=== PATIENT | female | born 1965 ===

== ENCOUNTER 2023-06-22 06:02 | Day surgery (SDC) | payer OTHER ==
[2023-06-18 10:27] LABS: PH,URINE 7.5 (5.0-8.0); URINE APPEARANCE Clear; URINE BILIRRUBIN Negative (NEGATIVE); URINE BLOOD Negative; URINE COLOR Yellow; URINE GLUCOSE Negative (NEGATIVE); URINE LEUKOCYTE Trace; URINE NITRATE Negative; URINE PROTEIN Negative (NEGATIVE); URINE UROBILINOGEN 0.2 E.U./dl
[2023-06-18 10:31] LABS: HEMATOCRIT 46.4 % (36.0-45.00); HEMOGLOBIN 15.1 g/dL (12.0-15.00); MEAN CELL VOLUME 92.9 fL (80.00-100.00); MEAN CORPUSCULAR HEMOGLOBIN 30.2 pg (27.00-32.0); MEAN CORPUSCULAR HGB CONC 32.5 g/dl (32.0-36.0); PLATELET COUNT 264 K/uL (150-450); RED BLOOD COUNT 4.99 M/uL (4.00-6.00); RED CELL DISTRIBUTION WIDTH 13.9 % (11.5-14.5)
[2023-06-18 10:32] LABS: URINE BACTERIA 26.5 uL (0.0-1933); URINE EPITHELIAL CELLS 1.4 uL (0.0-38.8); URINE RBC 3.1 uL (0.0-20.8); URINE WBC 2.9 uL (0.0-23.2)
[2023-06-18 10:56] LABS: INR 1.01; PARTIAL THROMBOPLASTIN TIME 27.9 SECONDS (22.0-34.0); PROTHROMBIN TIME 10.6 SECONDS (9.0-11.5)
[2023-06-18 11:05] LABS: ALBUMIN 4.1 gm/dL (3.4-5.0); BILIRUBIN TOTAL 0.63 mg/dL (0.3-1.2); CALCIUM 9.4 mg/dL (8.5-10.1); CREATININE SERUM 0.71 mg/dL (0.55-1.02); GFR 84.26; GLOBULINA 2.9 G/DL (2.4-3.5); POTASSIUM 4.47 mEq/L (3.5-5.1)
[~2023-06-22] VITALS: Ht 165.1 cm; Wt 84.8 kg
[~2023-06-22 06:02] MED LIST: LIPITOR40 M1 PO
== END 2023-06-22 11:45 | disposition home or self-care (01) ==
LOC: CIR.AMB 06:02
PROVIDERS: ATTEND Otolaryngology
DX: C73 Malignant neoplasm of thyroid gland (principal); E04.2 Nontoxic multinodular goiter; Z88.6 Allergy status to analgesic agent; E78.5 Hyperlipidemia, unspecified

== ENCOUNTER 2023-08-31 07:38 | Day surgery (SDC) | payer OTHER ==
[2023-08-27 09:26] LABS: HEMOGLOBIN 14.6 g/dL (12.0-15.00); MEAN CELL VOLUME 91.9 fL (80.00-100.00); MEAN CORPUSCULAR HEMOGLOBIN 31.2 pg (27.00-32.0); PLATELET COUNT 272 K/uL (150-450); RED BLOOD COUNT 4.68 M/uL (4.00-6.00)
[2023-08-27 09:32] LABS: URINE APPEARANCE Cloudy; URINE BILIRRUBIN Negative (NEGATIVE); URINE COLOR Yellow; URINE GLUCOSE Negative (NEGATIVE); URINE LEUKOCYTE Large; URINE NITRATE Negative; URINE PROTEIN Trace (NEGATIVE); URINE UROBILINOGEN 0.2 E.U./dl
[2023-08-27 09:39] LABS: URINE BACTERIA 728.1 uL (0.0-1933); URINE EPITHELIAL CELLS 3.2 uL (0.0-38.8); URINE RBC 12.7 uL (0.0-20.8)
[2023-08-27 09:48] LABS: INR 1.01; PARTIAL THROMBOPLASTIN TIME 27.7 SECONDS (22.0-34.0); PROTHROMBIN TIME 10.6 SECONDS (9.0-11.5)
[2023-08-27 09:49] LABS: URINE BLOOD TRACES
[2023-08-27 09:57] LABS: ALBUMIN 4.2 gm/dL (3.4-5.0); BILIRUBIN TOTAL 0.54 mg/dL (0.3-1.2); CALCIUM 9.3 mg/dL (8.5-10.1); CREATININE SERUM 0.73 mg/dL (0.55-1.02); GFR 81.6; GLOBULINA 2.9 G/DL (2.4-3.5); POTASSIUM 4.8 mEq/L (3.5-5.1); TOTAL PROTEIN 7.1 gm/dL (6.4-8.2)
== END 2023-08-31 12:25 | disposition home or self-care (01) ==
LOC: O/R 07:38 → CIR.AMB 07:38 → SURG 07:38 → EDSTATUS 08:00 → SURG 08:00 → SURH 10:49 → O/R 10:49 → CIR.AMB 12:25 → SURH 12:25 → SURG 15:00
PROVIDERS: ATTEND Otolaryngology
DX: C73 Malignant neoplasm of thyroid gland (principal); Z20.822 Contact with and (suspected) exposure to COVID-19; Z88.8 Allergy status to other drugs, medicaments and biological substances